=== PATIENT | female | born 1965 | race American Indian/Alaskan Native ===

== ENCOUNTER 2017-12-12 10:34 | Emergency (ER) | payer SELFPAY ==
--- NOTE | 2017-12-12 15:48 | Emergency Department Report ---
Chief Complaint: Abdominal Pain Stated Complaint: BLOOD IN URINE - HPI History of Present Illness: 52 yo female presents with UTI symptoms. hematuria, dysuria, urgency - Exam Vital Signs: Vital Signs 12/12/17 11:24 Temperature 99.1 F Pulse Rate 86 Respiratory 16 Rate Blood Pressure 139/85 O2 Sat by Pulse 100 Oximetry MSE screening note: Focused history and physical exam performed. Due to findings the following was ordered: ED Disposition for MSE Condition: Stable Instructions: Abdominal Pain (ED) Referrals: PRIMARY CARE, [Primary Care Provider] - 3-5 Days
--- NOTE | 2017-12-12 15:52 | Emergency Department Report ---
ED Female HPI - General Chief complaint: Abdominal Pain Stated complaint: BLOOD IN URINE Time Seen by Provider: 12/12/17 15:51 Source: patient, family Mode of arrival: Ambulatory Limitations: No Limitations - History of Present Illness Initial comments: Patient complains of blood in urine since Saturday. Patient also complaining of lower abdominal pain. States that the Pyridium and it helps with abdominal pain. Denies any nausea vomiting or diarrhea. Patient is a diabetic and she says she has not taken her medication today her blood sugar is at 386 in triage area. Denies nausea , vomiting or diarrhea. 5/10 and cramping MD Complaint: pelvic pain Onset/Timin -: Gradual Time: 18:25 Location: suprapubic Radiation: non-radiating Severity: moderate Severity scale (0 -10): 5 Quality: cramping Consistency: intermittent Improves with: none Worsens with: none Are you Now?: No Associated Symptoms: abdominal pain, hematuria. denies: vaginal discharge, vaginal bleeding, fever/chills, headaches, loss of appetite, dysuria, rash, seizure, shortness of breath, syncope, weakness - Related Data Sexually active: No Previous Rx's Medication Instructions Recorded Last Taken Type Cephalexin [Keflex] 500 mg PO Q8H 10 Days #30 capsule 12/12/17 Unknown Rx Fluconazole [Diflucan TAB] 150 mg PO QDAY 3 Days #3 tablet 12/12/17 Unknown Rx Phenazopyridine [Pyridium] 100 mg PO TID PRN 3 Days #9 tab 12/12/17 Unknown Rx Allergies Allergy/AdvReac Type Severity Reaction Status Date / Time No Known Allergies Allergy Unverified 12/12/17 11:24 ED Review of Systems ROS: Stated complaint: BLOOD IN URINE Other details as noted in HPI Comment: All other systems reviewed and negative Constitutional: no symptoms reported Eyes: denies: eye discharge ENT: denies: throat pain Respiratory: no symptoms reported Cardiovascular: denies: chest pain, palpitations, dyspnea on exertion, edema, syncope, paroxysmal nocturnal dyspnea Gastrointestinal: abdominal pain. denies: nausea, vomiting, diarrhea, constipation, hematemesis, hematochezia Genitourinary: hematuria. denies: dysuria, frequency, discharge, abnormal menses Musculoskeletal: denies: back pain, joint swelling, arthralgia, myalgia Skin: denies: rash Neurological: denies: headache, paresthesias ED Past Medical Hx - Past Medical History Previous Medical History?: Yes Hx Hypertension: Yes Hx Heart Attack/AMI: Yes Hx Diabetes: Yes Additional medical history: chronic kidney disease - Surgical History Past Surgical History?: Yes Hx Open Heart Surgery: Yes Hx Cholecystectomy: Yes - Family History Family history: hypertension - Social History Smoking Status: Never Smoker Substance Use Type: Alcohol - Medications Home Medications: Home Medications Medication Instructions Recorded Confirmed Last Taken Type Cephalexin [Keflex] 500 mg PO Q8H 10 Days #30 capsule 12/12/17 Unknown Rx Fluconazole [Diflucan TAB] 150 mg PO QDAY 3 Days #3 tablet 12/12/17 Unknown Rx Phenazopyridine [Pyridium] 100 mg PO TID PRN 3 Days #9 tab 12/12/17 Unknown Rx ED Physical Exam - General Limitations: No Limitations General appearance: alert, in no apparent distress, appears intoxicated - Head Head exam: Present: atraumatic, normocephalic, normal inspection - Eye Eye exam: Present: normal appearance, PERRL, EOMI. Absent: periorbital swelling , periorbital tenderness Pupils: Present: normal accommodation - ENT ENT exam: Present: normal exam, normal orophraynx, mucous membranes moist - Neck Neck exam: Present: normal inspection, full ROM, other (no C-spine tenderness). Absent: tenderness, meningismus, lymphadenopathy, thyromegaly - Respiratory Respiratory exam: Present: normal lung sounds bilaterally. Absent: respiratory distress, chest wall tenderness - Cardiovascular Cardiovascular Exam: Present: regular rate, normal rhythm, normal heart sounds. Absent: systolic murmur, diastolic murmur - GI/Abdominal GI/Abdominal exam: Present: soft, normal bowel sounds. Absent: distended, tenderness, guarding, rebound, rigid, hypoactive bowel sounds, organomegaly, mass, bruit, pulsatile mass, hernia - Extremities Exam Extremities exam: Present: normal inspection, full ROM, normal capillary refill , other. Absent: tenderness, pedal edema, joint swelling, calf tenderness - Back Exam Back exam: Present: normal inspection, full ROM. Absent: tenderness, CVA tenderness (R), CVA tenderness (L), muscle spasm, paraspinal tenderness, vertebral tenderness, rash noted - Neurological Exam Neurological exam: Present: alert, oriented X3, normal gait, reflexes normal. Absent: motor sensory deficit - Psychiatric Psychiatric exam: Present: normal affect, normal mood - Skin Skin exam: Present: warm, dry, intact, normal color. Absent: rash ED Course Vital Signs 12/12/17 11:24 Temperature 99.1 F Pulse Rate 86 Respiratory 16 Rate Blood Pressure 139/85 O2 Sat by Pulse 100 Oximetry Vital Signs 12/12/17 12/12/17 11:24 18:22 Temperature 99.1 F 98.3 F Pulse Rate 86 87 Respiratory 16 18 Rate Blood Pressure 139/85 Blood Pressure 120/82 [Left] O2 Sat by Pulse 100 100 Oximetry - Reevaluation(s) Reevaluation #1: 12/12/17 18:30 Patient orally hydrated. She was given Keflex 500 mg in emergency room. ED Medical Decision Making - Lab Data Lab Results 12/12/17 12/12/17 Range/Units 11:34 16:01 POC Glucose 386 H (70-105) Urine Color Yellow (Yellow) Urine Turbidity Slightly cloudy (Clear) Urine pH 5.0 (5.0-7.0) Ur Specific [place] 1.016 (1.003-1.030) Urine Protein <15 mg/dl (Negative) mg/dL Urine Glucose (UA) >=500 (Negative) mg/dL Urine Ketones Neg (Negative) mg/dL Urine Blood Mod (Negative) Urine Nitrite Neg (Negative) Urine Bilirubin Neg (Negative) Urine Urobilinogen < 2.0 (<2.0) mg/dL Ur Leukocyte Esterase Lg (Negative) Urine WBC (Auto) > 182.0 H (0.0-6.0) /HPF Urine RBC (Auto) 123.0 (0.0-6.0) /HPF U Epithel Cells (Auto) 2.0 (0-13.0) /HPF Urine Yeast (Budding) 3+ /HPF Urine cultures pending - Medical Decision Making ED course: pt here complaining of abdominal pain left lower quadrant. Found to have urinary tract infection to include bacterial and yeast infection. Urine culture sent and pending. Patient orally hydrated in the emergency room and started on Keflex. She did not take her diabetic medication today so I reinforced with her that she needs to take her medication as prescribed by her primary care physician and if she has any nausea vomiting and increase in abdominal back pain, fever or chills to return to the emergency room [facility] otherwise follow up with her primary care physician whom she does have access to in 2 days. Patient is currently having no back pain, nausea vomiting, CVA or chills. Her vital signs are stable and she is afebrile. She voiced understanding and discharged home with prescription for Keflex for bacterial UTI and Diflucan for yeast UTI and Pyridium for pain. Critical care attestation.: If time is entered above; I have spent that time in minutes in the direct care of this critically ill patient, excluding procedure time. ED Disposition Clinical Impression: Acute cystitis with hematuria, Non-compliance with treatment, Yeast UTI Abdominal pain Qualifiers: Abdominal location: left lower quadrant Qualified Code(s): R10.32 - Left lower quadrant pain Disposition: TO HOME OR SELFCARE Is pt being admited?: No Does the pt Need Aspirin: No Condition: Stable Instructions: Abdominal Pain (ED), Urinary Tract Infection in Women (ED) Additional Instructions: Please increase her fluid intake. 2-3 L of water per day. Avoid drinking in carbonated beverage as this can increase your blood sugar and worsening a urinary tract infection Take Pyridium and this will help with your abdominal cramping and Please follow up with your primary care physician on Saturday Take antibiotic for yeast UTI and also bacterial urinary tract infection Prescriptions: Cephalexin [Keflex] 500 mg PO Q8H 10 Days #30 capsule Fluconazole [Diflucan TAB] 150 mg PO QDAY 3 Days #3 tablet Phenazopyridine [Pyridium] 100 mg PO TID PRN 3 Days #9 tab PRN Reason: Pain Referrals: PRIMARY CAREMD [Primary Care Provider] - 12/16/17 Forms: Work/School Release Form(ED)
[2017-12-12 16:20] LABS: Bilirubin,Urine NEG (Negative); Blood,Urine MOD (Negative); Color,Urine Yellow (Yellow); Nitrite,Urine NEG (Negative); Protein,Urine <15 mg/dL mg/dL (Negative); Urobilinogen,Urine < 2.0 mg/dL (<2.0)
[2017-12-12 16:22] LABS: WBC,Urine > 182.0 /HPF (0.0-6.0)
[2017-12-12] MEDS ORDERED: KEFLEX PO ONE (18:07)
[2017-12-12 18:23] VITALS: BP 120/82
== END 2017-12-12 18:52 | disposition home or self-care (01) ==
LOC: ED 10:34
DX: N30.01 Acute cystitis with hematuria (principal); B37.89 Other sites of candidiasis; Z91.19 Patient's noncompliance with other medical treatment and regimen; R10.32 Left lower quadrant pain; I12.9 Hypertensive chronic kidney disease with stage 1 through stage 4 chronic kidney disease, or unspecified chronic kidney disease; E11.22 Type 2 diabetes mellitus with diabetic chronic kidney disease; N18.9 Chronic kidney disease, unspecified
CPT/HCPCS: 81001; 82962; 87086; 99283

== ENCOUNTER 2017-12-22 12:24 | Emergency (ER) | payer SELFPAY ==
--- NOTE | 2017-12-22 18:54 | Emergency Department Report ---
ED Female HPI - General Chief complaint: Urogenital-Female Stated complaint: VAGINAL DISCHARGE Time Seen by Provider: 12/22/17 16:32 Source: patient Mode of arrival: Ambulatory Limitations: No Limitations - History of Present Illness Initial comments: This is a 52 y.o. female presents with heavy discharge for 1 week. Patient states she was treated for UTI and yeast infection last Saturday in the ER. She completed antibiotics and diflucan with no improvement of symptoms. She tried taking monistat for 1 day 2 days ago and discharge increased. The discharge is cream colored with slight odor. The discharge is heavy requiring patient to wear a maxipad and itch. Admits to a new partner and she thought he put on a condom. Denies urgency, frequency, abdominal pain, and back pain. MD Complaint: vaginal discharge (cream colored and heavy), possible STD -: week(s) (1) Location: labia Radiation: non-radiating Severity: severe Severity scale (0 -10): 9 Quality: other (itch) Consistency: constant Improves with: none Worsens with: none Are you Now?: No (LMP in late 40's) Associated Symptoms: vaginal discharge. denies: vaginal bleeding, abdominal pain, nausea/vomiting, fever/chills, headaches, loss of appetite, dysuria, hematuria, rash, seizure, shortness of breath, syncope, weakness - Related Data Sexually active: Yes Previous Rx's Medication Instructions Recorded Last Taken Type Cephalexin [Keflex] 500 mg PO Q8H 10 Days #30 capsule 12/12/17 Unknown Rx Fluconazole [Diflucan TAB] 150 mg PO QDAY 3 Days #3 tablet 12/12/17 Unknown Rx Phenazopyridine [Pyridium] 100 mg PO TID PRN 3 Days #9 tab 12/12/17 Unknown Rx metroNIDAZOLE [Metronidazole] 500 mg PO BID 7 Days #14 tablet 12/22/17 Unknown Rx Allergies Allergy/AdvReac Type Severity Reaction Status Date / Time No Known Allergies Allergy Unverified 12/12/17 11:24 ED Review of Systems ROS: Stated complaint: VAGINAL DISCHARGE Other details as noted in HPI Constitutional: denies: chills, fever Respiratory: denies: cough, shortness of breath, wheezing Cardiovascular: denies: chest pain, palpitations Gastrointestinal: denies: abdominal pain, nausea, diarrhea Genitourinary: discharge. denies: urgency, dysuria, frequency, hematuria, abnormal menses, dyspareunia Musculoskeletal: denies: back pain, joint swelling, arthralgia Neurological: denies: headache, weakness, paresthesias ED Past Medical Hx - Past Medical History Hx Hypertension: Yes Hx Heart Attack/AMI: Yes Hx Diabetes: Yes Additional medical history: chronic kidney disease - Surgical History Past Surgical History?: Yes Hx Open Heart Surgery: Yes Hx Cholecystectomy: Yes - Social History Smoking Status: Never Smoker - Medications Home Medications: Home Medications Medication Instructions Recorded Confirmed Last Taken Type Cephalexin [Keflex] 500 mg PO Q8H 10 Days #30 capsule 12/12/17 Unknown Rx Fluconazole [Diflucan TAB] 150 mg PO QDAY 3 Days #3 tablet 12/12/17 Unknown Rx Phenazopyridine [Pyridium] 100 mg PO TID PRN 3 Days #9 tab 12/12/17 Unknown Rx metroNIDAZOLE [Metronidazole] 500 mg PO BID 7 Days #14 tablet 12/22/17 Unknown Rx ED Physical Exam - General Limitations: No Limitations General appearance: alert, in no apparent distress - Respiratory Respiratory exam: Present: normal lung sounds bilaterally. Absent: respiratory distress - Cardiovascular Cardiovascular Exam: Present: regular rate, normal rhythm. Absent: systolic murmur, diastolic murmur, rubs, gallop - GI/Abdominal GI/Abdominal exam: Present: soft, normal bowel sounds - External exam: Present: erythema. Absent: lesions, lacerations, ecchymosis, bleeding Speculum exam: Present: erythema, vaginal discharge (frothy greenish-yellow,), cervical discharge (greenish-yellow), vaginal bleeding. Absent: foreign body, tissue, laceration Bi-manual exam: Present: cervical motion tendernes. Absent: adnexal tenderness , adnexal mass, uterine enlargement, uterine tenderness - Neurological Exam Neurological exam: Present: alert, oriented X3, normal gait - Skin Skin exam: Present: warm, dry, intact, normal color. Absent: rash ED Course Vital Signs 12/22/17 12:56 Temperature 97.9 F Pulse Rate 94 H Respiratory 16 Rate Blood Pressure 126/82 O2 Sat by Pulse 99 Oximetry ED Medical Decision Making - Medical Decision Making This is a 52 y.o. female presents with vaginal discharge for 1 week. Patient was examined by me. Obtained GC, wet prep, HCG, and UA. Obtained wet prep via pelvic exam, results positive for trichomoniasis vaginitis. Discussed results with patient. Physical assessment susceptible of GC. Given azithromycin 1,000 mg po and rocephin 250 mg IM, in ER. Discharged home in stable condition. Start metronidazole 500 mg po bid x 7 days. Discussed prevention options. F/U with PCP or Health Department. Critical care attestation.: If time is entered above; I have spent that time in minutes in the direct care of this critically ill patient, excluding procedure time. ED Disposition Clinical Impression: Exposure to STD, Trichomoniasis of vagina Disposition: TO HOME OR SELFCARE Is pt being admited?: No Does the pt Need Aspirin: No Condition: Stable Instructions: Safe Sex (ED), Sexually Transmitted Diseases (ED), Trichomoniasis (ED), Chlamydia Infection (ED) Additional Instructions: Avoid drinking alcohol for 24 hours. Inform partners of diagnosis and importance of being screened and treated. Continue safe sexual intercourse. Follow up with Primary Care Provider or health department. Prescriptions: metroNIDAZOLE [Metronidazole] 500 mg PO BID 7 Days #14 tablet Referrals: [facility] [Outside] - 3-5 Days [facility] [Outside] - 3-[address] [facility] [Outside] - 3-5 Days Forms: Work/School Release Form(ED) Time of Disposition: 20:02 Print Language: ARGENTINE
[2017-12-22] MEDS ORDERED: ZITHROMAX PO ONE (19:48)
[2017-12-22] MEDS ORDERED: ROCEPHIN IM ONE (19:48)
[2017-12-22] MEDS ORDERED: XYLOCAINE 1% MPF 5 mL INFILTRATI ONE (19:48)
[2017-12-22 19:57] LABS: Bilirubin,Urine NEG (Negative); Blood,Urine LG (Negative); Color,Urine Yellow (Yellow); Nitrite,Urine NEG (Negative); Urobilinogen,Urine < 2.0 mg/dL (<2.0)
[2017-12-22 20:04] LABS: RBC,Urine > 182.0 /HPF (0.0-6.0); WBC,Urine > 182.0 /HPF (0.0-6.0)
[2017-12-22 20:05] LABS: HCG Qualitative,Urine Negative (Negative)
[2017-12-22 20:35] VITALS: BP 145/96
== END 2017-12-22 20:40 | disposition home or self-care (01) ==
LOC: ED 12:24
DX: A59.01 Trichomonal vulvovaginitis (principal); Z20.2 Contact with and (suspected) exposure to infections with a predominantly sexual mode of transmission; I10 Essential (primary) hypertension; I25.2 Old myocardial infarction; E11.9 Type 2 diabetes mellitus without complications
CPT/HCPCS: 81001; 81025; 87210; 87591; 96372; 99284; J0696

== ENCOUNTER 2018-05-12 12:24 | Day surgery (SDC) | payer OTHER ==
[~2018-05-12 12:24] MED LIST: NACL 0.9% 1000 ML 1,000 ML IV SCH; XYLOCAINE MPF 2% ONE
--- NOTE | 2018-05-12 17:39 | Anesthesia Day of Surgery ---
Anesthesia Day of Surgery - Day of Surgery Patient Examined: Yes Patient H&P Reviewed: Yes Patient is NPO: Yes Beta Blockers: Yes
--- NOTE | 2018-05-12 17:39 | Anesthesia Consultation ---
Anesthesia Consult and Med Hx Date of service: 05/12/18 - Airway Anesthetic Teeth Evaluation: Partials (upper) ROM Head & Neck: Adequate Mental/Hyoid Distance: Adequate Mallampati Class: Class II Intubation Access Assessment: Probably Good - Pre-Operative Health Status ASA Pre-Surgery Classification: ASA3 Proposed Anesthetic Plan: MAC - Pulmonary Hx Smoking: Yes (FORMER SMOKER QUIT 2009) - Cardiovascular System Hx Hypertension: Yes Hx Coronary Artery Disease: Yes (high cholesterol) Hx Heart Attack/AMI: Yes (CABG 2009) - Endocrine Hx Insulin Dependent Diabetes: Yes
[2018-05-12] MEDS ORDERED: DIPRIVAN 10 MG/ML IV ONE (18:29)
--- NOTE | 2018-05-12 19:06 | Operative Report ---
Operative Report Operative Report: Date of procedure: 05/12/2018 Procedure: Colonoscopy( Incomplete). Attending physician: Alden Slaughter MD Clinical Engineering Manager: Alden Slaughter MD Indication: Patient is a 52-year-old female who presents for colonoscopy for colorectal cancer screening. A colonoscopy serves to evaluate patient so that treatment may be directed based on the findings. Consent: Informed consent was obtained after advising the patient and family regarding nature of this procedure, its indications, potential benefits as well as possible complications including but not limited to bleeding perforation and adverse reaction to medication, infection as well as other cardiopulmonary complications. An informed written and verbal consent was then obtained after due opportunity was provided for questions and answers. Monitoring: Patient was monitored continuously with pulse oximetry and electrocardiographic recordings as well as blood pressure recordings. Vital signs remained stable throughout this procedure with no untoward events. Preoperative assessment: Patient was assessed immediately prior to this procedure for capacity to tolerate monitored anesthesia care and moderate sedation as well as general anesthesia. Patient's ASA classification is 2, Mallampati class is 2, Hyomental distance is 3. Instrument: Audionamixn video colonoscope Medications: Propofol given intravenously in divided doses. For details please refer to anesthesia records. Description of procedure: Patient was placed in the left lateral decubitus position after achieving sedation, a digital rectal examination was performed following which the colonoscope was introduced into the anal verge and advanced to the transverse colon. There was incremental stool density with poor visualization of the colon due to poor preparation. The colonoscope was therefore withdrawn from this point with inspection of the segments of the colon seen. Findings: Substantial retained stool with poor visualization of the colon. On a retroflexed view at the anal verge, patient had internal hemorrhoids. Impression: Poor preparation with substantial retained stool. Internal hemorrhoids. Plan: High-fiber diet. Prn stool softeners.
--- NOTE | 2018-05-12 19:07 | Discharge Summary ---
Short Stay Discharge Plan Activity: advance as tolerated Weight Bearing Status: Weight Bear as Tolerated Diet: regular Follow up with: SERGE CHAPMAN MD [Primary Care Provider] - 7 Days
[2018-05-12 19:42] VITALS: BP 161/96
== END 2018-05-12 12:25 | disposition home or self-care (01) ==
LOC: GIO 12:24
PROVIDERS: ATTEND Internal Medicine Gastroenterology
DX: Z12.11 Encounter for screening for malignant neoplasm of colon (principal); K64.8 Other hemorrhoids; I10 Essential (primary) hypertension; I25.10 Atherosclerotic heart disease of native coronary artery without angina pectoris; E11.9 Type 2 diabetes mellitus without complications; E78.00 Pure hypercholesterolemia, unspecified; I21.9 Acute myocardial infarction, unspecified; Z90.49 Acquired absence of other specified parts of digestive tract; Z95.1 Presence of aortocoronary bypass graft; Z98.890 Other specified postprocedural states; Z87.891 Personal history of nicotine dependence
CPT/HCPCS: 45378; 82962; J2704; J7030

== ENCOUNTER 2021-04-18 07:59 | Day surgery (SDC) | payer OTHER ==
[~2021-04-18 07:59] MED LIST changes: -NACL 0.9% 1000 ML 1,000 ML IV SCH; +SODIUM CHLORIDE 0.9% 1000 ML 1,000 ML IV SCH; -XYLOCAINE MPF 2% ONE
[2021-04-18] MEDS ORDERED: INSULIN REGULAR, HUMAN 100 UNITS/1 ML IV NR (08:52)
--- NOTE | 2021-04-18 09:15 | Anesthesia Consultation ---
Anesthesia Consult and Med Hx Date of service: 04/18/21 - Airway Anesthetic Teeth Evaluation: Partials ROM Head & Neck: Adequate Mental/Hyoid Distance: Adequate Mallampati Class: Class II Intubation Access Assessment: Probably Good - Pre-Operative Health Status ASA Pre-Surgery Classification: ASA3 Proposed Anesthetic Plan: MAC - Pulmonary Hx Smoking: Yes (quit 2009) Hx Respiratory Symptoms: No - Cardiovascular System Hx Hypertension: Yes Hx Coronary Artery Disease: Yes Hx Heart Attack/AMI: Yes (s/p CABG 2009; >4mets functional status) Hx Percutaneous Transluminal Coronary Angioplasty (PTCA): No Hx Cardia Arrhythmia: No - Central Nervous System CVA: No - Endocrine Hx Renal Disease: Yes (CKD) Hx Liver Disease: No Hx Insulin Dependent Diabetes: Yes (took half usual insulin dose yesterday) Hx Thyroid Disease: No - Other Systems Hx Obesity: Yes (BMI 36) - Additional Comments Anesthesia Medical History Comments: No hx anesthetic complications.
--- NOTE | 2021-04-18 09:16 | Anesthesia Day of Surgery ---
Anesthesia Day of Surgery - Day of Surgery Patient Examined: Yes Patient H&P Reviewed: Yes Patient is NPO: Yes
[2021-04-18] MEDS ORDERED: propofoL 200 MG/20 ML VIAL IV ONE ×2 (09:20→09:37)
--- NOTE | 2021-04-18 09:54 | Short Stay Summary ---
Short Stay Documentation Date of service: 04/18/21 Narrative H&P: The patient presents for her first screening colonoscopy. Average risk profile for colon cancer. - History Past Medical History: CAD, diabetes, hypertension, other (Advanced CKD) Past Surgical History: cholecystectomy, CABG, Other (Dialysis shunt) Social history: no significant social history, no smoking, no alcohol abuse - Allergies and Medications Current Medications: Allergies No Known Allergies Allergy (Unverified 12/12/17 11:24) Home Medications Medication Instructions Recorded Confirmed Last Taken Type Amlodipine Besylate 5 mg PO DAILY 04/17/21 04/18/21 04/17/21 09:00 History Cephalexin 500 mg PO PRN 04/17/21 04/17/21 Unknown History Furosemide 40 mg PO DAILY 04/17/21 04/18/21 04/17/21 09:00 History Gabapentin 300 mg PO DAILY 04/17/21 04/18/21 04/17/21 09:00 History Levemir VIAL 45 units SQ DAILY 04/17/21 04/18/21 04/17/21 09:00 History Metoprolol Succinate 100 mg PO DAILY 04/17/21 04/18/21 04/17/21 09:00 History NovoLOG 100 UNITS/ML VIAL 20 units SQ DAILY 04/17/21 04/18/21 04/17/21 09:00 History Terbinafine HCl 250 mg PO DAILY 04/17/21 04/18/21 04/17/21 09:00 History glipiZIDE 10 mg PO DAILY 04/17/21 04/18/21 04/17/21 09:00 History Active Medications Sodium Chloride (Nacl 0.9% 1000 Ml) 1,000 mls @ 50 mls/hr IV DIRECT GIANFRANCO Last Admin: 04/18/21 08:43 Dose: 50 mls/hr Documented by: - Physical exam General appearance: no acute distress, well-nourished Integumentary: no rash, no growths, no abnormal pigmentation HEENT: Atraumatic, PERRLA, EOMI, Mucous membr. moist/pink Lungs: Clear to auscultation, Normal air movement Breasts: deferred Heart: Regular rate, Normal S1, Normal S2, No murmurs Gastrointestinal: normoactive bowel sounds, no tenderness, no distended, no masses, no guarding, no organomegaly, obese Female Genitourinary: deferred Rectal Exam: normal exam-external/orifice, normal rectal tone, no mass Extremities: no ischemia, pulses intact, pulses symmetrical, No edema, normal temperature, normal color, Full ROM Neurological: Normal gait, Normal speech, Strength at 5/5 X4 ext, Normal tone, Sensation intact, Cranial nerves 3-12 NL - Brief post op/procedure progress note Date of procedure: 04/18/21 Procedure: see dictation Estimated blood loss: none Pathology: list (2 transverse colon polyps, 1 sigmoid colon polyp) Specimen disposition: to lab Condition: stable - Disposition Condition at discharge: Good Disposition: DC-01 TO HOME OR SELFCARE - Discharge Diagnoses (1) Colon cancer screening Status: Acute Short Stay Discharge Plan Activity: other (no driving for 24 hours) Weight Bearing Status: Full Weight Bearing Diet: diabetic, renal Follow up with: SERGE CHAPMAN MD [Primary Care Provider] - 7 Days
--- NOTE | 2021-04-18 10:51 | Post Anesthesia Evaluation ---
- Post Anesthesia Evaluation Patient Participated: Yes Airway Patent: Yes Stable Respiratory Function: Yes Nausea/Vomiting: No Temp > 96.8F: Yes Pain Manageable: Yes Adequeate Hydration: Yes Anesthesia Complications: No
[2021-04-18 11:03] VITALS: BP 127/61
== END 2021-04-18 10:40 | disposition home or self-care (01) ==
LOC: GIO 07:59
PROVIDERS: ATTEND Internal Medicine Gastroenterology
DX: Z12.11 Encounter for screening for malignant neoplasm of colon (principal); D12.3 Benign neoplasm of transverse colon; D12.5 Benign neoplasm of sigmoid colon; I25.10 Atherosclerotic heart disease of native coronary artery without angina pectoris; E78.00 Pure hypercholesterolemia, unspecified; I12.9 Hypertensive chronic kidney disease with stage 1 through stage 4 chronic kidney disease, or unspecified chronic kidney disease; E11.22 Type 2 diabetes mellitus with diabetic chronic kidney disease; Z98.890 Other specified postprocedural states; E66.9 Obesity, unspecified; Z79.899 Other long term (current) drug therapy; Z87.891 Personal history of nicotine dependence; Z95.1 Presence of aortocoronary bypass graft; Z90.49 Acquired absence of other specified parts of digestive tract; Z68.36 Body mass index [BMI] 36.0-36.9, adult; Z98.891 History of uterine scar from previous surgery
CPT/HCPCS: 45385; 82962; 88305; J2704; J7030; J1815

== ENCOUNTER 2021-06-15 12:19 | Emergency (ER) | payer OTHER ==
--- NOTE | 2021-06-15 14:48 | Event Note ---
ED Screening Note Date of service: 06/15/21 Time: 14:47 ED Screening Note: 55-year-old -[place] female presents to the ER today with complaints of left upper quadrant abdominal pain. She states that her pain started this past Saturday. Patient states that she had similar pain in the past. She states that she had a colonoscopy about 2 months ago to evaluate the cause of her pain, but she states that colonoscopy did not show anything serious. After the colonoscopy the pain went away up until this past Saturday. She states that the pain is worse than it ever been. She denies nausea, vomiting, diarrhea, constipation, fever, chills, chest pain or shortness of breath. She denies any past history of abdominal surgeries. Her cut off worker is Dr. MCBRIDE. She states that she has never had a CT abdomen pelvis to evaluate her pain. Past medical history significant for CAD status post bypass surgery, HPL D, hypertension and diabetes This initial assessment/diagnostic orders/clinical plan/treatment(s) is/are subject to change based on patients health status, clinical progression and re- assessment by fellow clinical providers in the ED. Further treatment and workup at subsequent clinical providers discretion. Patient/guardian urged not to elope from the ED as their condition may be serious if not clinically assessed and managed. Initial orders include: Abdominal pain order set including CT abdomen pelvis
[2021-06-15 15:35] LABS: Basophils % (Auto) 0.5 % (0.0-1.8); Eosinophils # (Auto) 0.2 K/mm3 (0.0-0.4); Eosinophils % (Auto) 2.2 % (0.0-4.3); Hematocrit 40.7 % (30.3-42.9); Hemoglobin 13.8 gm/dl (10.1-14.3); Lymphocytes # (Auto) 1.8 K/mm3 (1.2-5.4); Mean Corpuscular HGB Conc 34 % (30-34); Mean Corpuscular Volume 96 fl (79-97); Monocytes # (Auto) 0.7 K/mm3 (0.0-0.8); Monocytes % (Auto) 10.4 % (0.0-7.3); Platelet Count 203 K/mm3 (140-440); Red Blood Count 4.23 M/mm3 (3.65-5.03); Red Cell Distribution Width 14.6 % (13.2-15.2)
[2021-06-15 15:39] LABS: Alanine Aminotransferase 10 units/L (7-56); Albumin 3.8 g/dL (3.9-5); Albumin 4.1 g/dL (3.9-5); Calcium 8.7 mg/dL (8.4-10.2)
[2021-06-15 15:41] LABS: Bilirubin,Direct < 0.2 mg/dL (0-0.2)
--- NOTE | 2021-06-15 16:30 | Cat Scan Report ---
CT ABDOMEN AND PELVIS WITHOUT CONTRAST HISTORY: Left-sided abdominal pain COMPARISON: None TECHNIQUE: Routine abdominal and pelvic CT exam performed without contrast. Lack of intravenous cont rast limits evaluation of the vascular and solid organs.. All CT scans at this location are performed using CT dose reduction for ALARA by means of automated exposure control. FINDINGS: CT ABDOMEN: Lung Bases: No significant abnormality. Liver: No significant abnormality. Biliary: Gallbladder is surgically absent. Spleen: No significant abnormality. Unenlarged. Pancreas: No significant abnormality. Adrenals: No significant abnormality. Kidneys: No significant abnormality. Lymphatics: No lymphadenopathy. Vasculature: Atherosclerotic but nonaneurysmal abdominal aorta. Bowel/Peritoneum: No significant abnormality. No free air. No free fluid. CT PELVIC: : No significant abnormality. Lymphatics: No lymphadenopathy. Osseous Structures: No aggressive appearing osseous lesions. Additional Findings: None IMPRESSION: 1. No acute findings. Signer Name: Jonah Calhoun MD Signed: 06/15/2021 4:26 PM Workstation Name: [id number]
[2021-06-15 16:46] LABS: Bacteria,Urine 1+ /HPF (Negative); Bilirubin,Urine NEG (Negative); Blood,Urine SM (Negative); Color,Urine Yellow (Yellow); Mucus,Urine FEW /HPF; Urobilinogen,Urine < 2.0 mg/dL (<2.0)
--- NOTE | 2021-06-15 18:05 | Emergency Department Report ---
ED Abdominal Pain HPI - General Chief Complaint: Abdominal Pain Stated Complaint: STOMACH PAIN Time Seen by Provider: 06/15/21 18:02 Source: patient Mode of arrival: Ambulatory Limitations: No Limitations - History of Present Illness Initial Comments: 55-year-old -[place] female presents to the ER today with complaints of left upper quadrant abdominal pain. She states that her pain started this past Saturday. Patient reports that she had this similar episode back in October. She states that she had a colonoscopy about 2 months ago to evaluate the cause of her pain, but she states that colonoscopy did not show anything serious. After the colonoscopy the pain went away up until this past Saturday. She states that the pain is worse than it ever been. She denies nausea, vomiting, diarrhea, constipation, fever, chills, chest pain or shortness of breath. She denies any past history of abdominal surgeries. Her management developer is Dr. MCBRIDE. She states that she has never had a CT abdomen pelvis to evaluate her pain. Past medical history significant for CAD status post bypass surgery, HPL D, hypertension and diabetes - Related Data Home Medications Medication Instructions Recorded Confirmed Last Taken Amlodipine Besylate 5 mg PO DAILY 04/17/21 04/18/21 04/17/21 09:00 Cephalexin 500 mg PO PRN 04/17/21 04/17/21 Unknown Furosemide 40 mg PO DAILY 04/17/21 04/18/21 04/17/21 09:00 Gabapentin 300 mg PO DAILY 04/17/21 04/18/21 04/17/21 09:00 Levemir VIAL 45 units SQ DAILY 04/17/21 04/18/21 04/17/21 09:00 Metoprolol Succinate 100 mg PO DAILY 04/17/21 04/18/21 04/17/21 09:00 NovoLOG 100 UNITS/ML VIAL 20 units SQ DAILY 04/17/21 04/18/21 04/17/21 09:00 Terbinafine HCl 250 mg PO DAILY 04/17/21 04/18/21 04/17/21 09:00 glipiZIDE 10 mg PO DAILY 04/17/21 04/18/21 04/17/21 09:00 Allergies Allergy/AdvReac Type Severity Reaction Status Date / Time No Known Allergies Allergy Verified 06/15/21 12:26 ED Review of Systems ROS: Stated complaint: STOMACH PAIN Other details as noted in HPI ED Past Medical Hx - Past Medical History Hx Hypertension: Yes Hx Heart Attack/AMI: Yes (s/p CABG 2009; >4mets functional status) Hx Diabetes: Yes Hx Liver Disease: No Hx Renal Disease: Yes (CKD) Additional medical history: chronic kidney disease - Surgical History Hx Open Heart Surgery: Yes Hx Cholecystectomy: Yes Additional Surgical History: PORT - Social History Smoking Status: Never Smoker Substance Use Type: Alcohol - Medications Home Medications: Home Medications Medication Instructions Recorded Confirmed Last Taken Type Amlodipine Besylate 5 mg PO DAILY 04/17/21 04/18/21 04/17/21 09:00 History Cephalexin 500 mg PO PRN 04/17/21 04/17/21 Unknown History Furosemide 40 mg PO DAILY 04/17/21 04/18/21 04/17/21 09:00 History Gabapentin 300 mg PO DAILY 04/17/21 04/18/21 04/17/21 09:00 History Levemir VIAL 45 units SQ DAILY 04/17/21 04/18/21 04/17/21 09:00 History Metoprolol Succinate 100 mg PO DAILY 04/17/21 04/18/21 04/17/21 09:00 History NovoLOG 100 UNITS/ML VIAL 20 units SQ DAILY 04/17/21 04/18/21 04/17/21 09:00 History Terbinafine HCl 250 mg PO DAILY 04/17/21 04/18/21 04/17/21 09:00 History glipiZIDE 10 mg PO DAILY 04/17/21 04/18/21 04/17/21 09:00 History ED Physical Exam - General Limitations: No Limitations General appearance: alert, in no apparent distress - Head Head exam: Present: atraumatic, normocephalic - Eye Eye exam: Present: normal appearance - ENT ENT exam: Present: mucous membranes moist, normal external ear exam - Neck Neck exam: Present: normal inspection, full ROM - Respiratory Respiratory exam: Present: normal lung sounds bilaterally. Absent: respiratory distress, chest wall tenderness, accessory muscle use - Cardiovascular Cardiovascular Exam: Present: regular rate - GI/Abdominal GI/Abdominal exam: Present: soft, tenderness (Deep palpation on left epigastric area), normal bowel sounds. Absent: distended - Extremities Exam Extremities exam: Present: normal inspection, full ROM - Back Exam Back exam: Present: normal inspection - Neurological Exam Neurological exam: Present: alert, oriented X3, normal gait - Psychiatric Psychiatric exam: Present: normal affect, normal mood - Skin Skin exam: Present: warm, dry, intact, normal color. Absent: rash ED Course Vital Signs 06/15/21 12:28 Temperature 98.2 F Pulse Rate 92 H Respiratory 20 Rate Blood Pressure 181/85 O2 Sat by Pulse 98 Oximetry - Reevaluation(s) Reevaluation #1: 06/15/21 21:51 Patient reports she feels much better after having fluids and insulin. 06/15/21 21:51 ED Medical Decision Making - Lab Data Result diagrams: 06/15/21 15:05 06/15/21 15:05 - Radiology Data Radiology results: report reviewed Study Comments [facility] [address] [place] [address] Cat Scan Report Signed Patient: IVONNE RAMOS MR#: [id number] : 1965 Acct:[id number] Age/Sex: 55 / F ADM Date: 06/15/21 Loc: ED Attending Dr: Ordering Physician: MILADY CASTRO Date of Service: 06/15/21 Procedure(s): CT abdomen pelvis wo con Accession Number(s): [id number] cc: MILADY CASTRO CT ABDOMEN AND PELVIS WITHOUT CONTRAST HISTORY: Left-sided abdominal pain COMPARISON: None TECHNIQUE: Routine abdominal and pelvic CT exam performed without contrast. Lack of intravenous contrast limits evaluation of the vascular and solid organs.. All CT scans at this location are performed using CT dose reduction for ALARA by means of automated exposure control. FINDINGS: CT ABDOMEN: Lung Bases: No significant abnormality. Liver: No significant abnormality. Biliary: Gallbladder is surgically absent. Spleen: No significant abnormality. Unenlarged. Pancreas: No significant abnormality. Adrenals: No significant abnormality. Kidneys: No significant abnormality. Lymphatics: No lymphadenopathy. Vasculature: Atherosclerotic but nonaneurysmal abdominal aorta. Bowel/Peritoneum: No significant abnormality. No free air. No free fluid. CT PELVIC: : No significant abnormality. Lymphatics: No lymphadenopathy. Osseous Structures: No aggressive appearing osseous lesions. Additional Findings: None IMPRESSION: 1. No acute findings. Signer Name: Jonah Calhoun MD Signed: 06/15/2021 4:26 PM Workstation Name: [employer] Transcribed By: MELISSA Dictated By: Jonah Calhoun MD Electronically Authenticated By: Jonah Calhoun MD Signed Date/Time: 06/15/211625 DD/ 23 TD/TT: - Medical Decision Making 55-year-old -[place] female presents to the ER today with complaints of left upper quadrant abdominal pain. She states that her pain started this past Saturday. Patient reports that she had this similar episode back in October. She states that she had a colonoscopy about 2 months ago to evaluate the cause of her pain, but she states that colonoscopy did not show anything serious. After the colonoscopy the pain went away up until this past Saturday. She states that the pain is worse than it ever been. She denies nausea, vomiting, diarrhea, constipation, fever, chills, chest pain or shortness of breath. She denies any past history of abdominal surgeries. Her management developer is Dr. MCBRIDE. She states that she has never had a CT abdomen pelvis to evaluate her pain. Past medical history significant for CAD status post bypass surgery, HPL D, hypertension and diabetes CBC CMP urinalysis CT abdomen lipase ordered. We will the patient normal saline bolus, insulin regular 10 units IV. We will recheck blood sugar before and prior to administering insulin. Critical Care Time: Yes (31) Critical care attestation.: If time is entered above; I have spent that time in minutes in the direct care of this critically ill patient, excluding procedure time. ED Disposition Clinical Impression: Left upper quadrant abdominal pain, Hyperglycemia, End stage renal disease with hypertension Disposition: TO HOME OR SELFCARE Is pt being admited?: No Does the pt Need Aspirin: No Condition: Stable Instructions: Abdominal Pain (ED), Hypertension (ED), Food Basics for Chronic Kidney Disease, Pain Without a Known Cause, Hyperglycemia, [id number], Chronic Kidney Disease, Adult, [id number] Additional Instructions: CT scans negative for any acute abnormalities of her abdomen. Labs showed that she had elevated glucose of 469. Kidney function decreased. 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 Continue taking all your chronic medications as prescribed by your other providers. Follow-up with a management developer. Referrals: PRIMARY CARE, [Primary Care Provider] - 3-5 Days Your, Primary Care Provider [Other] - 3-5 Days Forms: Work/School Release Form(ED) Time of Disposition: 22:02
[2021-06-15] MEDS ORDERED: SODIUM CHLORIDE 0.9% 1000 ML 1,000 ML IV ONE (19:18)
[2021-06-15] MEDS ORDERED: INSULIN REGULAR, HUMAN 100 UNITS/1 ML IV ONE (19:18)
[2021-06-16 02:24] VITALS: BP 163/88
== END 2021-06-15 22:30 | disposition home or self-care (01) ==
LOC: ED 12:19
DX: R10.12 Left upper quadrant pain (principal); I12.0 Hypertensive chronic kidney disease with stage 5 chronic kidney disease or end stage renal disease; E11.22 Type 2 diabetes mellitus with diabetic chronic kidney disease; E11.65 Type 2 diabetes mellitus with hyperglycemia; N18.6 End stage renal disease; Z98.890 Other specified postprocedural states
CPT/HCPCS: 36415; 74176; 80053; 80076; 81001; 82962; 83690; 85025; 96361; 96374; 99284; J7030; J1815